=== PATIENT | male | born 1980 | race Two or more races ===

== ENCOUNTER 2017-10-07 11:24 | Emergency (ER) | payer MEDICAID ==
[~2017-10-07] VITALS: Ht 157.5 cm; Wt 63.5 kg
[2017-10-07] MEDS ORDERED: HYDROCODONE/APAP 10/325MG 1 EA TABLET ONE (11:54)
[2017-10-07] MEDS ORDERED: ONDANSETRON 4 MG TAB.RAPDIS ONE (11:54)
[2017-10-07] MEDS: ONDANSETRON 4 MG TAB.RAPDIS SL ONE (12:06)
[2017-10-07] MEDS: HYDROCODONE/APAP 10/325MG 1 EA TABLET PO ONE (12:06)
--- NOTE | 2017-10-07 12:45 | NUR ---
PT BACK FROM CT
[2017-10-07 14:31] VITALS: BP 149/81
== END 2017-10-07 14:33 | disposition home or self-care (01) ==
LOC: ER 11:28
DX: M54.5 Low back pain (principal); M54.6 Pain in thoracic spine
CPT/HCPCS: 72074-TC; 72100-TC; A4606; Q0162; Z7610

== ENCOUNTER 2020-07-31 22:46 | Emergency (ER) | payer MEDICAID ==
[~2020-07-31] VITALS: Ht 152.4 cm; Wt 65.3 kg
--- NOTE | 2020-07-31 23:11 | NUR ---
PT AAOX4. BIBSELF C/O L SIDED ABD PAIN FOR THE PAST WEEK. +FEVER. 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 AWAITING MD FOR EVAL AND ORDERS.
[2020-07-31] MEDS ORDERED: VANCOMYCIN 1 GM VIAL ONE (23:24)
[2020-07-31] MEDS ORDERED: PIPERACILLIN /TAZOBACTAM 3.375 G VIAL IV ONE (23:24)
[2020-07-31] MEDS ORDERED: MORPHINE SULFATE INJ 4 MG/ML DISP.SYRIN ONE (23:24)
[2020-07-31] MEDS ORDERED: IV NS 0.9% 1,000 ML IV ONE ×2 (23:30)
[2020-07-31] MEDS ORDERED: MORPHINE SULFATE INJ 2 MG/ML DISP.SYRIN IV ONE (23:30)
[2020-07-31] MEDS ORDERED: PIPERACILLIN /TAZOBACTAM 3.375 G in IV D5W 50 ML IV ONE (23:30)
[2020-07-31] MEDS ORDERED: VANCOMYCIN 1 GM in IV D5W 250 ML IV ONE (23:30)
[2020-07-31] MEDS ORDERED: IV NS 0.9% 1,000 ML BAG IV ONE (23:30)
[2020-07-31] MEDS ORDERED: ACETAMINOPHEN ES 500 MG TABLET ONE (23:34)
[2020-07-31 23:35] LABS: BASOPHILS % (AUTO) 0.3 % (0.0-2.0); EOSINOPHILS % (AUTO) 0.1 % (0.0-6.0); HEMATOCRIT 44 % (39-51); HEMOGLOBIN 14.4 g/dL (13.5-17.5); LYMPHOCYTES # (AUTO) 1.3 /CMM (0.8-4.8); LYMPHOCYTES % (AUTO) 14.8 % (20.0-44.0); MEAN CORPUSCULAR HGB CONC 33 g/dl (31.0-36.0); MEAN CORPUSCULAR VOLUME 86 fL (80-96); MONOCYTES # (AUTO) 1.9 /CMM (0.1-1.30); MONOCYTES % (AUTO) 21.7 % (2.0-12.0); NEUTROPHILS # (AUTO) 5.4 /CMM (1.8-8.9); NEUTROPHILS % (AUTO) 63.1 % (43.0-81.0); PLATELET COUNT (AUTO) 197 /CMM (150-450); RED BLOOD CELL COUNT(AUTO) 5.07 MIL/uL (4.5-6.0); WHITE BLOOD COUNT (AUTO) 8.5 K/uL (4.3-11.0)
[2020-07-31 23:42] LABS: CALCIUM, SERUM 9.1 mg/dL (8.5-10.1)
--- NOTE | 2020-07-31 23:42 | NUR ---
AWAITING FOR PT TO PROVIDE URINE SAMPLE
[2020-07-31] MEDS ORDERED: IOHEXOL-300 100 ML VIAL IV ONE (23:44)
[2020-07-31] MEDS ORDERED: CT SWABBABLE VALVE TRANS SET 1 EA INFUS.SET MC ONE (23:44)
[2020-07-31] MEDS ORDERED: IV NS 0.9% 250 ML IV ONE (23:44)
[2020-07-31 23:45] LABS: BILIRUBIN,URINE Negative (NEGATIVE); COLOR,URINE YELLOW (YELLOW); LEUKOCYTE ESTERASE ,URINE Small (NEGATIVE); NITRITE, URINE Negative (NEGATIVE); PH,URINE 6.5 (5.0-8.0); PROTEIN,URINE Trace mg/dl (NEGATIVE); UGLUCOSE Negative (NEGATIVE); UROBILINOGEN,URINE 0.2 EU/dL (0.2)
[2020-07-31 23:49] LABS: ALBUMIN 3.9 g/dL (3.4-5.0); BILIRUBIN,DIRECT 0.1 mg/dL (0.0-0.2); BILIRUBIN,TOTAL 0.7 mg/dL (0.2-1.0)
[2020-07-31 23:55] LABS: LYMPHOCYTES % (MANUAL) 15 % (16-48); MONOCYTES % (MANUAL) 22 % (0-11.0); NEUTROPHILS % (MANUAL) 63 (42-76)
--- NOTE | 2020-08-01 00:03 | NUR ---
BROUGHT TO CT
[2020-08-01 00:08] LABS: BACTERIA,URINE 1+ /HPF (None Seen); SQUAMOUS EPITHELIAL CELL,UR Few /HPF (None Seen)
[2020-08-01] MEDS ORDERED: ACETAMINOPHEN 325 MG TABLET PO ONE (00:30)
--- NOTE | 2020-08-01 02:00 | NUR ---
Patient discharged to home in stable condition. Written and verbal after care instructions given. Patient verbalizes understanding of instruction. Pt ambulated out of E.D. vss.
[2020-08-01 02:31] VITALS: BP 135/79
== END 2020-08-01 02:03 | disposition home or self-care (01) ==
LOC: ER 22:48
DX: R33.9 Retention of urine, unspecified (principal); R50.9 Fever, unspecified; R10.32 Left lower quadrant pain; R10.12 Left upper quadrant pain
CPT/HCPCS: 36415; 71045; 74177; 76770; 80048; 80076; 81001; 83605; 83690; 84145; 84484; 85007; 85025; 85730; 87040 ×2; 93005; 96365; 96367; 96375; 99285; J2270; J2543 ×2; J3370; J7030; J7050; J7060; Q9967; 87086-TC